=== PATIENT | male | born 1950 | race American Indian/Alaskan Native ===

== ENCOUNTER 2019-03-08 03:21 | Emergency (ER) | payer MEDICARE ==
[2019-03-08 03:57] LABS: Basophils % (Auto) 0.9 % (0.0-1.8); Eosinophils # (Auto) 0.1 K/mm3 (0.0-0.4); Eosinophils % (Auto) 2.5 % (0.0-4.3); Hematocrit 36.8 % (35.5-45.6); Hemoglobin 12.5 gm/dl (11.8-15.2); Lymphocytes # (Auto) 1.1 K/mm3 (1.2-5.4); Lymphocytes % (Auto) 21.8 % (13.4-35.0); Mean Corpuscular HGB Conc 34 % (32-34); Mean Corpuscular Volume 88 fl (84-94); Monocytes # (Auto) 0.6 K/mm3 (0.0-0.8); Monocytes % (Auto) 11.2 % (0.0-7.3); Platelet Count 161 K/mm3 (140-440); Red Blood Count 4.17 M/mm3 (3.65-5.03); Red Cell Distribution Width 15.2 % (13.2-15.2)
--- NOTE | 2019-03-08 04:08 | Emergency Department Report ---
ED Abdominal Pain HPI - General Chief Complaint: Abdominal Pain Stated Complaint: LEFT CRISTI PAIN Time Seen by Provider: 03/08/19 03:44 Source: patient Mode of arrival: Ambulatory Limitations: No Limitations - History of Present Illness Initial Comments: Mr. Burnett is a 68-year-old male with history of congestive heart failure, CVA, hypertension, abdominal aortic aneurysm, aortic dissection, sleep apnea who presents with left lower quadrant abdominal pain for the past 2 days. Pain is dull muscle nonspecific radiates to the pelvis. He has been living with the abdominal aortic aneurysm for 20 years. He was instructed by his vascular surgeon at [place] to come to ER for any abdominal or back pain. His aortic aneurysm has been below 4.5 cm in size according to his report. He drove to ED by private auto. MD Complaint: abdominal pain -: Gradual, days(s) (2) Location: LUQ Radiation: other (pelvis) Severity: mild Quality: dull Consistency: now resolved Improves With: nothing Worsens With: nothing Associated Symptoms: denies other symptoms - Related Data Previous Rx's Medication Instructions Recorded Last Taken Type traMADol [Ultram 50 MG tab] 50 mg PO Q6HR PRN #10 tablet 03/08/19 Unknown Rx Allergies Allergy/AdvReac Type Severity Reaction Status Date / Time No Known Allergies Allergy Unverified 03/08/19 03:29 ED Review of Systems ROS: Stated complaint: LEFT CRISTI PAIN Other details as noted in HPI Comment: All other systems reviewed and negative Constitutional: denies: fever, malaise Gastrointestinal: abdominal pain. denies: nausea, vomiting Genitourinary: denies: urgency, dysuria ED Past Medical Hx - Past Medical History Previous Medical History?: Yes Hx Hypertension: Yes Hx CVA: Yes Hx Congestive Heart Failure: Yes Additional medical history: Triple A, disection X 2, sleeping apnea - Surgical History Past Surgical History?: Yes Additional Surgical History: aortar disection repair. - Social History Smoking Status: Never Smoker Substance Use Type: Alcohol - Medications Home Medications: Home Medications Medication Instructions Recorded Confirmed Last Taken Type traMADol [Ultram 50 MG tab] 50 mg PO Q6HR PRN #10 tablet 03/08/19 Unknown Rx ED Physical Exam - General Limitations: No Limitations General appearance: alert, in no apparent distress, other (jovial talkative appears comfortable) - Head Head exam: Present: atraumatic, normocephalic - Eye Eye exam: Present: normal appearance - ENT ENT exam: Present: mucous membranes moist - Neck Neck exam: Present: normal inspection, full ROM - Respiratory Respiratory exam: Present: normal lung sounds bilaterally. Absent: respiratory distress, wheezes, rales, rhonchi - Cardiovascular Cardiovascular Exam: Present: regular rate, normal rhythm, normal heart sounds. Absent: systolic murmur, diastolic murmur, rubs, gallop - GI/Abdominal GI/Abdominal exam: Present: soft, normal bowel sounds. Absent: distended, tenderness, guarding, rebound - Rectal Rectal exam: Present: deferred - Extremities Exam Extremities exam: Present: normal inspection - Back Exam Back exam: Present: normal inspection - Neurological Exam Neurological exam: Present: alert, oriented X3 - Psychiatric Psychiatric exam: Present: normal affect, normal mood - Skin Skin exam: Present: warm, dry, intact, normal color. Absent: rash ED Course Vital Signs 03/08/19 03/08/19 03:29 03:53 Temperature 98.7 F 98.3 F Pulse Rate 69 65 Respiratory 16 17 Rate Blood Pressure 147/85 Blood Pressure 131/93 [Left] O2 Sat by Pulse 97 99 Oximetry ED Medical Decision Making - Lab Data Result diagrams: 03/08/19 03:36 03/08/19 03:36 Laboratory Results - last 24 hr 03/08/19 03/08/19 03/08/19 03:36 03:36 04:30 WBC 5.0 RBC 4.17 Hgb 12.5 Hct 36.8 MCV 88 MCH 30 MCHC 34 RDW 15.2 Plt Count 161 Lymph % (Auto) 21.8 [place] % (Auto) 11.2 H Eos % (Auto) 2.5 Baso % (Auto) 0.9 Lymph # 1.1 L [place] # 0.6 Eos # 0.1 Baso # 0.0 Seg Neutrophils % 63.6 Seg Neutrophils # 3.2 Sodium 136 L Potassium 3.7 Chloride 103.2 Carbon Dioxide 23 Anion Gap 14 BUN 17 Creatinine 1.1 Estimated GFR > 60 BUN/Creatinine Ratio 15 Glucose 101 H Calcium 9.1 Total Bilirubin 0.80 AST 18 ALT 12 Alkaline Phosphatase 58 Total Protein 7.5 Albumin 3.9 Albumin/Globulin Ratio 1.1 Urine Color Yellow Urine Turbidity Clear Urine pH 5.0 Ur Specific [place] 1.021 Urine Protein 30 mg/dl Urine Glucose (UA) Neg Urine Ketones Neg Urine Blood Sm Urine Nitrite Neg Urine Bilirubin Neg Urine Urobilinogen < 2.0 Ur Leukocyte Esterase Neg Urine WBC (Auto) 1.0 Urine RBC (Auto) 4.0 U Epithel Cells (Auto) < 1.0 Urine Mucus Few - Radiology Data Radiology results: report reviewed CT abdomen and pelvis without acute process, - Medical Decision Making Mrs. Burnett presents with left upper quadrant abdominal pain. No evidence of peritonitis. No evidence of intra-abdominal hemorrhage. No evidence of acute process. No evidence of entity Given reassurance. Suspect gastritis versus peptic ulcer disease versus dyspepsia vs constipation. Given reassurance. In peculiar fashion, Mr. Burnett insisted on pain medication. Heart rate 60 bpm. He was sleeping comfortably prior to discharge. He speak of having scans "all over the city" including [place] in September, [facility]. He has most recently seen his surgeon in September. I do not suspect acute vascular problem at this time. dc'd home with prescription for tramadol Critical care attestation.: If time is entered above; I have spent that time in minutes in the direct care of this critically ill patient, excluding procedure time. ED Disposition Clinical Impression: Abdominal pain, Aortic dissection, Abdominal aortic aneurysm Disposition: DC-01 TO HOME OR SELFCARE Is pt being admited?: No Does the pt Need Aspirin: No Condition: Stable Instructions: Thoracic Aortic Aneurysm (ED), Abdominal Aortic Aneurysm Repair (ED) Prescriptions: traMADol [Ultram 50 MG tab] 50 mg PO Q6HR PRN #10 tablet PRN Reason: Pain [facility] [Primary Care Provider] - 3-5 Days GERSON ANTOINE MD [Staff Physician] - 3-5 Days
[2019-03-08 04:36] LABS: Alanine Aminotransferase 12 units/L (7-56); Albumin 3.9 g/dL (3.9-5); BUN/Creatinine Ratio 15; Blood Urea Nitrogen 17 mg/dL (9-20); Calcium 9.1 mg/dL (8.4-10.2); Hemolysis Index 7
[2019-03-08 04:52] LABS: Bilirubin,Urine NEG (Negative); Blood,Urine SM (Negative); Color,Urine Yellow (Yellow); Mucus,Urine FEW /HPF; Urobilinogen,Urine < 2.0 mg/dL (<2.0)
--- NOTE | 2019-03-08 05:14 | Cat Scan Report ---
CT abdomen pelvis wo con INDICATION / CLINICAL INFORMATION: LUQ pain. Patient has known history of aortic aneurysm and dissection TECHNIQUE: Axial CT imaging of abdomen and pelvis was performed without IV or oral contrast. Coronal and sagitta l reformatted images obtained and reviewed. All CT scans at this location are performed using CT dose reduction for ALARA by means of automated exposure control. COMPARISON: None available. FINDINGS: CT abdomen without contrast demonstrates aneurysm of the visualized portion of the descending thoraci c aorta as well as the abdominal aorta. Aneurysm extends into the right common iliac artery. There is a visible dissection throughout the visualized thoracic/abdominal aorta. The visualized portion of t he descending thoracic aortic aneurysm has a maximum transverse diameter of 7.0 cm. The proximal abdo jose aortic aneurysm has a maximal transverse diameter of 6.5 cm. The distal abdominal aortic aneury sm has a transverse diameter 4.5 cm. The right common iliac artery aneurysm is 3.5 cm. The left commo n iliac artery has a transverse diameter 1.7 cm. I see no evidence of rupture. CT abdomen, for noncontrast exam, shows grossly normal appearance of the liver, spleen, pancreas, rig ht kidney, adrenal glands, and gallbladder. There are a few simple cysts in the left kidney, the lar gest of which measures 5.[address] pelvis without contrast shows no evidence for pelvic mass, free fluid, or focal inflammatory ponce e. GI tract is grossly unremarkable. I am unable to identify an appendix. Visualized lung bases are clear. Coronary artery calcifications can be seen. Heart size is normal. No significant acute osseous abnormality. Mild spondylitic change noted within the spine. IMPRESSION: 1. Aortic aneurysm is present involving the visualized portion of the descending thoracic aorta as we ll as the entire abdominal aorta. Dimensions are provided above. 2. Visible aortic dissection which appears to extend into the right common iliac artery. 3. No additional acute finding within the abdomen or pelvis. 4. COMMUNICATION: Time of Communication: 0358 hours Licensed Practitioner Receiving Report: Dr. English Signer Name: Jerica Hidalgo MD Signed: 03/08/2019 5:09 AM Workstation Name: [id number]
[2019-03-08] MEDS ORDERED: TYLENOL PO ONE (05:45)
[2019-03-08] MEDS ORDERED: TYLENOL ONE (05:49)
[2019-03-08 06:08] VITALS: BP 149/92
== END 2019-03-08 05:45 | disposition home or self-care (01) ==
LOC: ED 03:21
DX: I71.4 Abdominal aortic aneurysm, without rupture (principal); I71.00 Dissection of unspecified site of aorta; I11.0 Hypertensive heart disease with heart failure; I50.9 Heart failure, unspecified; Z86.73 Personal history of transient ischemic attack (TIA), and cerebral infarction without residual deficits; Z98.890 Other specified postprocedural states; Z87.09 Personal history of other diseases of the respiratory system
CPT/HCPCS: 36415; 74176; 80053; 81001; 85025